=== PATIENT | male | born 1940 | race Two or more races ===

== ENCOUNTER → 2017-01-15 | Outpatient (CLI) | payer MEDICARE ==
--- NOTE | 2017-01-15 12:27 | RAD ---
Exam performed: 2 views of the chest. Indication: HEMOPTYSIS Date of Service:01/15/2017 2:00 AM . Comparison : None available. Findings: PA and lateral radiographs of the chest reveal a normal cardiomediastinal contour. The lungs are clear. No pleural fluid is seen. The visualized osseous structures are unremarkable. Impression: Radiographically normal chest.
== END | disposition home or self-care (01) ==
LOC: RAD 11:43
PROVIDERS: ATTEND Family Medicine
DX: R04.2 Hemoptysis (principal)
CPT/HCPCS: 71020

== ENCOUNTER → 2018-10-23 | Outpatient (CLI) | payer BC ==
--- NOTE | 2018-10-23 15:31 | RAD ---
Renal sonography Clinical indications: Microscopic hematuria. FINDINGS: The longitudinal and AP and transverse dimensions of the right kidney are 11.1 cm and 5.7 cm and 6.2 cm respectively. The longitudinal and AP and transverse dimensions of the left kidney are 10.7 cm and 5.9 cm and 4.9 cm respectively. There is a parapelvic cyst of the central aspect of the left kidney measuring 2.5 cm in size. No hydronephrosis is seen on either side. Urinary bladder is not abnormally distended. The prostate gland is enlarged measuring 53 cc and 5.7 cm transversely. There is an echogenic nodule within the anterior nondependent wall of the left side of the urinary bladder measuring 1.8 cm in size. Color flow is seen within it. This is consistent with a urinary bladder neoplasm. IMPRESSION: No hydronephrosis. 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 Enlarged prostate gland. Electronically signed by: Jairon Hall MD (10/23/2018 3:28 PM) [id number]
== END | disposition home or self-care (01) ==
LOC: US 06:53
PROVIDERS: ATTEND Family Medicine
DX: C67.3 Malignant neoplasm of anterior wall of bladder (principal); N40.0 Benign prostatic hyperplasia without lower urinary tract symptoms; N28.1 Cyst of kidney, acquired
CPT/HCPCS: 76770